=== PATIENT | female | born 1980 | race Caucasian/White ===

== ENCOUNTER 2017-07-18 22:43 | Inpatient (IN) | payer BC, MEDICAID ==
[2017-07-18] MEDS ORDERED: PITOCIN 30 UNITS/ LR 500 ML 500 ML IV ONE (22:54)
[2017-07-18] MEDS ORDERED: Lactated Ringers 1,000 ML IV ONE (22:54)
[2017-07-18] MEDS ORDERED: Zofran 4 MG/2 ML VIAL IV PRN (22:57)
[2017-07-18] MEDS ORDERED: PITOCIN 30 UNITS/ LR 500 ML 500 ML IV SCH (23:00)
[2017-07-18] MEDS: Lactated Ringers 1,000 ML IV SCH (23:04)
[2017-07-18 23:14] LABS: BASOPHIL % 0.3 % (0.0-0.4); Eosinophil % 1.4 % (0.00-5.0); Granulocytes % 69.2 % (36.0-66.0); Mean Cell Volume 83.8 fl (78-100); Mean Corpuscular Hemoglobin 27.8 pg (26-32); Mean Platelet Volume 12.3 fl (6-9.5); Monocytes % 10.1 % (0.0-12.0); Platelet Count 180 K/mm3 (150-450); Red Blood Count 4.32 M/mm3 (4.1-5.4); White Blood Count 7.6 K/mm3 (4.0-10.5)
[2017-07-19] MEDS ORDERED: XYLOCAINE 1% HCL 20 ML MDV IJ PRN (00:01)
[2017-07-19] MEDS: TYLENOL EXTRA STRENGTH 500 MG PO PRN (00:03)
[2017-07-19] MEDS ORDERED: LANSINOH 40 GM TOP PRN (01:15)
[2017-07-19] MEDS ORDERED: TYLENOL EXTRA STRENGTH 500 MG PO PRN (01:15)
[2017-07-19] MEDS ORDERED: Ambien 10 MG PO PRN (01:15)
[2017-07-19] MEDS ORDERED: Mylicon 80MG PO PRN (01:15)
[2017-07-19] MEDS ORDERED: CORTISONE 1% CREAM TP PRN (01:15)
[2017-07-19] MEDS: TUCKS TP PRN (01:39)
[2017-07-19] MEDS: Dermoplast Spray TP PRN (01:39)
[2017-07-19] MEDS: MOTRIN 400 MG PO PRN ×2 (01:50→12:56)
[2017-07-19] MEDS: Colace 100 MG PO SCH ×2 (09:48→21:03)
[2017-07-19] MEDS: FERREX 150 PO SCH (09:48)
[2017-07-19] MEDS ORDERED: Adacel Vial IM ONE (10:00)
[2017-07-19] MEDS: NORCO 5/325 MG PO PRN (14:31)
[2017-07-20] MEDS: MOTRIN 400 MG PO PRN ×3 (01:45→21:20)
[2017-07-20 05:34] LABS: BASOPHIL % 0.8 % (0.0-0.4); Granulocytes % 60.9 % (36.0-66.0); Lymphocytes % 26.6 % (24.0-44.0); Mean Cell Volume 86.1 fl (78-100); Mean Corpuscular Hemoglobin 27.8 pg (26-32); Mean Platelet Volume 12.1 fl (6-9.5); Monocytes % 9.7 % (0.0-12.0); Platelet Count 170 K/mm3 (150-450); Red Blood Count 4.24 M/mm3 (4.1-5.4); Red Cell Distribution Width 14.3 % (11.5-14.0); White Blood Count 6.6 K/mm3 (4.0-10.5)
[2017-07-20 05:54] LABS: INR 1.11 (0.8-3.0); PROTIME 12.3 SECONDS (9.95-12.35); PTT 28.6 SECONDS (25.3-37.0)
[2017-07-20] MEDS ORDERED: Pepcid 20 MG VIAL IV SCH (08:00)
[2017-07-20] MEDS ORDERED: Reglan 10 MG/2 ML IV SCH (08:00)
[2017-07-20] MEDS: Lactated Ringers 1,000 ML IV SCH (08:14)
[2017-07-20] MEDS ORDERED: Lactated Ringers 1,000 ML IV ONE (08:20)
[2017-07-20] MEDS ORDERED: Sensorcaine 0.25% 10 ML ONE (08:20)
[2017-07-20] MEDS: TYLENOL EXTRA STRENGTH 500 MG PO PRN (08:24)
[2017-07-20] MEDS ORDERED: KEFZOL 1 GM ONE (09:17)
[2017-07-20] MEDS ORDERED: SUBLIMAZE 100 MCG/2 ML ONE (10:12)
--- NOTE | 2017-07-20 11:00 | OP ---
SURGERY DATE: 07/18/17 SURGERY TIME: PREOPERATIVE DIAGNOSIS: 1. DESIRES PERMANENT STERILIZATION. POSTOPERATIVE DIAGNOSIS: 1. DESIRES PERMANENT STERILIZATION. PROCEDURE: 1. bilateral tubal ligation. SPECIMENS: Bilateral fallopian tube segments. ESTIMATED BLOOD LOSS: Minimal. SURGEON: Dr. Tyrone Allen. ANESTHESIA: General by Gary Virk CRNA. DESCRIPTION OF PROCEDURE: This patient is a 37 y/o 3, para [address] Santiago's who came in and delivered by spontaneous vaginal delivery while he was on vacation. The patient had previously signed a consent for sterilization in the office with Dr. Santiago on 05/24/17. She and her desired permanent sterilization, had 3 children, and at her age of 37, she was certain she did not want any more children. I counseled her about the accepted failure rate of bilateral tubal ligation of 1:300 and also counseled her on the irreversible nature and permanence of this procedure. She agreed and desired a wish for permanent sterilization even presented with other options regarding contraception. She was taken to the OR after informed written consent was obtained and prepped and draped in the usual sterile fashion. She underwent general anesthesia. 0.25% Marcaine was used to infiltrate the site of incision. 8 cc were used in total. Infraumbilical skin incision was made by knife and carried down to the subcutaneous fat to the level of the fascia. The fascia was grasped and tented and Metzenbaum scissors were used to carefully open the fascia. The peritoneal cavity was then entered and first the left fallopian tube was identified. It was grasped with a Loyd and followed down to the fimbrial edge to identify that it was indeed the fallopian tube. Next, at the proximal tube segment, cautery was used to make a window in the mesosalpinx. Proximal and distal tube ends were then ligated with chromic tie and the interceding tube segment was dissected free with Metzenbaum scissors and sent for pathology. The free edge of the tube was then cauterized with electrocautery. The area was noted to be hemostatic with good result. Next, right fallopian tube was identified and in the same fashion, electrocautery was used to make a window in the mesosalpinx after the tube had been identified and followed to the fimbrial edge. Both proximal and distal tube segments again were ligated with chromic tie. The interceding tube segment was dissected free and the free fimbrial edges were cauterized with electrocautery. This side was also noted to be hemostatic with good results. Next, the fascia was closed with 0 Vicryl in a running fashion. Good closure and good hemostasis were achieved. The subcutaneous fat was irrigated with warm sterile saline. Any areas of bleeding were cauterized with electrocautery. Finally, the skin layer was closed with 4-0 undyed Vicryl in a running subcuticular fashion. The patient was transferred to the recovery room in excellent condition.
[2017-07-20 11:12] LABS: Collection Type CATH
[2017-07-20 11:13] LABS: Bacteria FEW /HPF (NEGATIVE); Bilirubin NEGATIVE (NEGATIVE); Blood 50 Ery/ul (0-5); COMPLETE URINE MICROSCOPIC? YES; Epithelial Cells FEW /HPF (FEW); Glucose NEGATIVE (NEGATIVE); Leukocyte Esterase TRACE (NEGATIVE); Mucus SLIGHT /HPF (NEGATIVE)
[2017-07-20] MEDS: Colace 100 MG PO SCH ×2 (11:18→21:20)
[2017-07-20] MEDS: FERREX 150 PO SCH (11:19)
[2017-07-20] MEDS ORDERED: BRIDION 200MG/2ML IV ONE (11:59)
[2017-07-20] MEDS ORDERED: Decadron 4 MG INJ IV ONE (11:59)
[2017-07-20] MEDS ORDERED: SUBLIMAZE 100 MCG/2 ML IV ONE (11:59)
[2017-07-20] MEDS ORDERED: Zofran 4 MG/2 ML VIAL IV ONE (11:59)
[2017-07-20] MEDS ORDERED: Versed 2 MG/2 ML Injection IV ONE (11:59)
[2017-07-20] MEDS ORDERED: DIPRIVAN 200 MG/20 ML IV ONE (11:59)
[2017-07-20] MEDS ORDERED: TORAdol 30 mg Injection IV ONE (11:59)
[2017-07-20] MEDS ORDERED: Zemuron 100 MG/10 ML IV ONE (11:59)
[2017-07-20] MEDS ORDERED: Quelicin Fliptop 200 MG/10 ML IV ONE (11:59)
[2017-07-20 12:20] VITALS: O2SAT 99
[2017-07-20] MEDS: NORCO 5/325 MG PO PRN ×3 (12:42→21:19)
[2017-07-21] MEDS: MOTRIN 400 MG PO PRN (04:35)
[2017-07-21] MEDS: NORCO 5/325 MG PO PRN ×2 (04:35→09:35)
[2017-07-21] MEDS: TUCKS TP PRN (04:39)
[2017-07-21] MEDS: Dermoplast Spray TP PRN (04:39)
--- NOTE | 2017-07-21 09:14 | PCM.DS ---
Discharge Summary Date of Admission: 07/18/17 22:43 Admitting Physician: BONNIE MCKOY Consults: Consults on Case 07/19/17 01:15 Notify Physician ROUTINE 07/20/17 00:58 Notify Anesthesia Provider ROUTINE Primary Care Provider: MARIBEL ANTHONY Allergies Allergies No Known Drug Allergies Allergy (Verified 07/18/17 23:23) Hospital Summary - Hospital Course Hospital Course: patient arrived in spontaneous labor at term, had with no complications. had bilateral tubal ligation with no complications. - Vitals & Intake/Output Vital Signs: Vital Signs Temperature 98.4 F 07/21/17 01:00 Pulse Rate 78 07/21/17 01:00 Respiratory Rate 18 07/21/17 01:00 Blood Pressure 128/63 07/21/17 01:00 O2 Sat by Pulse Oximetry 99 07/20/17 12:00 Intake & Output: Intake & Output 07/18/17 07/19/17 07/20/17 07/21/17 11:59 11:59 11:59 11:59 Intake Total 1251 2950 Balance 1251 2950 Weight 77.111 kg 77.111 kg - Lab Result Diagrams: 07/20/17 05:30 Lab Results-Last 24 Hrs: Lab Results-Last 24 Hours 07/20/17 Range/Units 09:15 Ur Collection Type CATH Urine Color LT.YELLOW (YELLOW) Urine Appearance CLEAR (CLEAR) Urine pH 7.0 (5-6) Ur Specific Pur[place] 1.010 (1.005-1.025) Urine Protein TRACE (Negative) Urine Ketones NEGATIVE (NEGATIVE) Urine Blood 50 (0-5) Anshul/ul Urine Nitrite NEGATIVE (NEGATIVE) Urine Bilirubin NEGATIVE (NEGATIVE) Urine Urobilinogen NORMAL (0-1) mg/dL Ur Leukocyte Esterase TRACE (NEGATIVE) Urine Microscopic RBC 0-2 (0-2) /HPF Urine Microscopic WBC 2-5 (0-5) /HPF Ur Epithelial Cells FEW (FEW) /HPF Urine Bacteria FEW (NEGATIVE) /HPF Urine Mucus SLIGHT (NEGATIVE) /HPF Urine Glucose NEGATIVE (NEGATIVE) mg/dL Specimen Received 07/20/17 0915 Discharge Exam General Appearance: no apparent distress, alert Respiratory Exam: normal breath sounds, lungs clear, No respiratory distress Cardiovascular Exam: regular rate/rhythm, normal heart sounds Gastrointestinal/Abdomen Exam: soft, No tenderness, No mass Extremity Exam: normal inspection, normal range of motion Final Diagnosis/Problem List - Final Discharge Diagnosis/Problem (1) Vaginal delivery Current Visit: Yes Status: Acute (2) Encounter for tubal ligation Current Visit: Yes Status: Acute - Discharge Disposition: Home, Self-Care Condition: Stable Prescriptions: New Docusate Sodium 100 mg [Colace 100 MG] 100 mg PO BID #60 capsule Hydrocodone Bit/Acetaminophen [Clinton 5-325 Tablet] 1 each PO Q4-6HPRN PRN # 20 tablet PRN Reason: Pain Continue Vits W-Ca,Fe,FA(<1Mg) [] 1 tablet PO DAILY Additional Instructions: 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 Take all medication until gone as directed, starting tomorrow. Make appointment to see Dr Mckoy next week for consistent care Follow up with: MARIBEL ANTHONY [Primary Care Provider] - 1 Week Forms: OB Outpatient Discharge Inst.
[2017-07-21] MEDS: FERREX 150 PO SCH (09:35)
[2017-07-21] MEDS: Colace 100 MG PO SCH (09:35)
[2017-07-21 10:02] VITALS: BP 109/65; PULSE 72
== END 2017-07-21 12:00 | disposition home or self-care (01) | DRG 767 ==
LOC: OB 22:43 → OBSVTOIN 22:43
PROVIDERS: ADMIT Family Medicine; ATTEND Family Medicine
PROC: 10E0XZZ Delivery of Products of Conception, External Approach (ICD-10-PCS; principal; 2017-07-19)
PROC: 0U570ZZ Destruction of Bilateral Fallopian Tubes, Open Approach (ICD-10-PCS; 2017-07-20)
DX: O80 Encounter for full-term uncomplicated delivery (principal); Z3A.38 38 weeks gestation of pregnancy; Z37.0 Single live birth; Z30.2 Encounter for sterilization
CPT/HCPCS: 00851; 36415; 80307; 81000; 85025; 85610; 85730; 87086; 88302; 90715; G0378; J0330; J0690; J1100; J1885; J2250; J2405; J2590; J2704; J3010; L0625; A9270-GY

== ENCOUNTER 2017-11-16 16:26 | Emergency (ER) | payer BC, MEDICAID, OTHER ==
[2017-11-16] MEDS ORDERED: Zofran 4 MG/2 ML VIAL IV ONE (16:50)
[2017-11-16] MEDS ORDERED: Sodium Chloride 0.9% 1000 ML 1,000 ML IV STA (16:50)
[2017-11-16] MEDS ORDERED: Sodium Chloride 0.9% 1000 ML 1,000 ML ONE (16:52)
[2017-11-16] MEDS ORDERED: Zofran 4 MG/2 ML VIAL ONE (16:52)
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
[2017-11-16 17:03] LABS: BASOPHIL % 0.3 % (0.0-0.4); Basophil (Absolute #) 0.01 (0-0.4); Eosinophil % 2.8 % (0.00-5.0); Eosinophil (Absolute #) 0.11 (0-0.5); Granulocyte Absolute (ANC) 1.87 (1.4-6.9); Granulocytes % 47.6 % (36.0-66.0); Hematocrit 42.1 % (35-47); Hemoglobin 14.7 gm/dl (12.0-16.0); Lymphocyte (Absolute #) 1.57 (1.0-4.6); Lymphocytes % 39.9 % (24.0-44.0); Mean Cell Volume 80.7 fl (78-100); Mean Corpuscular Hemoglobin 28.2 pg (26-32); Mean Corpuscular Hgb Concent. 34.9 g/dl (32-36); Mean Platelet Volume 10.7 fl (6-9.5); Monocyte (Absolute #) 0.37 (0.0-1.3); Monocytes % 9.4 % (0.0-12.0); Platelet Count 253 K/mm3 (150-450); Red Blood Count 5.22 M/mm3 (4.1-5.4); Red Cell Distribution Width 13.7 % (11.5-14.0); White Blood Count 3.9 K/mm3 (4.0-10.5)
[2017-11-16 17:23] LABS: ALBUMIN 4.5 g/dL (3.5-5.0); ALKALINE PHOSPHATASE 93 U/L (38-126); AMYLASE 73 U/L (30-110); ANION GAP 16.7 MEQ/L (5-15); BLOOD UREA NITROGEN 9 mg/dL (7-17); CHLORIDE 103 mmol/L (98-107); Calcium 9.6 mg/dL (8.4-10.2); Carbon Dioxide 27 mmol/L (22-30); Creatinine 1 0.66 mg/dL (0.52-1.04); Glucose 107 mg/dL (74-106); LIPASE 84 U/L (23-300); Potassium 3.4 mmol/L (3.5-5.1); SGOT/AST 34 U/L (14-36); SGPT/ALT 33 U/L (0-35); SODIUM 143 mmol/L (137-145); Total Protein 7.5 g/dL (6.3-8.2)
[2017-11-16] MEDS ORDERED: Klor Con 10 MEQ PO ONE ×2 (17:28→17:52)
[2017-11-16 17:32] VITALS: PULSE 85
[2017-11-16 17:38] LABS: Appearance CLEAR (CLEAR); Bilirubin NEGATIVE (NEGATIVE); Glucose NEGATIVE (NEGATIVE); Ketones NEGATIVE (NEGATIVE); Leukocyte Esterase NEGATIVE (NEGATIVE); Nitrite NEGATIVE (NEGATIVE); Protein,Urine Dip NEGATIVE (Negative); Urobilinogen NORMAL mg/dL (0-1)
[2017-11-16 17:39] LABS: Bacteria FEW /HPF (NEGATIVE); Blood TRACE NON-HEM Ery/ul (0-5); Epithelial Cells FEW /HPF (FEW)
[2017-11-16 18:14] VITALS: BP 133/89; O2SAT 98
--- NOTE | 2017-11-16 21:52 | XRAY ---
Indication: Nausea, vomiting, and tarry stools 2 days. Comparison: None 2 views of the abdomen nonacute and nonobstructed with mild scattered fecal debris in the transverse and descending colon. Previous cholecystectomy. No free air. Remaining solid organs and osseous structures unremarkable. Impression: Mild fecal stasis without obstruction.
== END 2017-11-16 18:14 | disposition home or self-care (01) ==
LOC: ED 16:26
DX: F41.9 Anxiety disorder, unspecified (principal); R11.2 Nausea with vomiting, unspecified; R10.9 Unspecified abdominal pain; E87.6 Hypokalemia
CPT/HCPCS: 36000; 36415; 74021; 80053; 81000; 82150; 83690; 84703; 85025; 96360; 96374; 99284; J2405; A9270-GY